=== PATIENT | female | born 1960 | race African-American/Black ===

== ENCOUNTER → 2016-10-07 | Outpatient (CLI) | payer OTHER ==
[~2016-10-07] MED LIST: ADVI200C5 PO; B-COCAP9 PO; B-COTAB30 PO; CYCL1TAB29 PO; FERR1TAB58 PO; HYDR2.5O TOPICAL; IBUP800T23 PO; MULTTAB67 PO; SLOW50TA PO; VENTAER INH; VITA10003 PO
[2016-10-07 09:12] LABS: AUTOMATED NEUTROPHIL # 6.1 TH/MM3 (1.8-7.7); BASOPHIL % 0.4 % (0.0-2.0); EOSINOPHIL # 0.1 TH/MM3 (0-0.4); EOSINOPHIL % 1.5 % (0.0-4.0); HEMATOCRIT 36.5 % (35.0-46.0); HEMO FLAGS DIFF FINAL; LYMPH % 27.4 % (9.0-44.0); LYMPHOCYTE # 2.6 TH/MM3 (1.0-4.8); MEAN CELL VOLUME 90.8 FL (80.0-100.0); MEAN CORPUSCULAR HEMOGLOBIN 30.5 PG (27.0-34.0); MEAN CORPUSCULAR HGB CONC 33.6 % (32.0-36.0); MONO % 7.2 % (0.0-8.0); NEUT % 63.5 % (16.0-70.0); PLATELET COUNT 274 TH/MM3 (150-450); RED BLOOD COUNT 4.02 MIL/MM3 (4.00-5.30); RED CELL DISTRIBUTION WIDTH 13.5 % (11.6-17.2); WHITE BLOOD COUNT 9.5 TH/MM3 (4.0-11.0)
[2016-10-07 10:16] LABS: ALKALINE PHOSPHATASE 105 U/L (45-117); ALT (GPT) 20 U/L (10-53); ANION GAP 8 MEQ/L (5-15); AST (GOT) 14 U/L (15-37); BICARBONATE 27.4 MEQ/L (21.0-32.0); BLOOD UREA NITROGEN 10 MG/DL (7-18); CHLORIDE 103 MEQ/L (98-107); GLOMERULAR FILTRATION RATE 58 ML/MIN (>89); GLUCOSE,FASTING 98 MG/DL (74-99); HDL CHOLESTEROL 39.1 MG/DL (40.0-60.0); LDL CHOLESTEROL 130 MG/DL (0-99); POTASSIUM 3.9 MEQ/L (3.5-5.1); SODIUM (NA) 138 MEQ/L (136-145); TOTAL BILIRUBIN ADULT 0.6 MG/DL (0.2-1.0)
== END ==
LOC: CLAB 08:39
PROVIDERS: ATTEND Family Medicine
DX: R76.8 Other specified abnormal immunological findings in serum (principal); M79.641 Pain in right hand; E78.5 Hyperlipidemia, unspecified
CPT/HCPCS: 36415; 80053; 80061; 84443; 85025

== ENCOUNTER 2017-05-17 16:47 | Emergency (ER) | payer SELFPAY ==
[~2017-05-17] VITALS: Ht 157.5 cm; Wt 50.0 kg
[~2017-05-17 16:47] MED LIST changes: -B-COCAP9 PO; +CYCL10TA PO; -CYCL1TAB29 PO; -FERR1TAB58 PO; +IBUP1TAB7 PO; -IBUP800T23 PO
[2017-05-17 16:49] VITALS: BP 137/74; PULSE 66; RESP 16; TEMP 98.2; O2SAT 99
--- NOTE | 2017-05-17 17:02 | PD ---
HPI Chief Complaint: Eye Problems/Injury Time Seen by Provider: 17:02 Travel History International Travel<30 days: No Contact w/Intl Traveler<30days: No Traveled to known affect area: No History of Present Illness HPI 57-year-old female came to the emergency room with history of bilateral eye irritation that has been going on for past 3 weeks. And says that she was diagnosed with conjunctivitis not in this emergency room and was given eyedrops. Patient says that the redness and the mattering became better after that but the irritation persists. She does not have a primary care physician and usually comes to the emergency room for her ailments. Vital signs are stable. There is no problem with her vision. No eye injury. Patient does not wear contact lenses. She just uses reading glasses. PFSH Past Medical History Narrative Medical List of her past medical, surgical, social and family history is reviewed from the nursing note. Social History Alcohol Use: No Tobacco Use: No Substance Use: No Allergies-Medications (Allergen,Severity, Reaction): Coded Allergies: No Known Allergies (Verified Adverse Reaction, Unknown, 05/17/17) Comments No known drug allergies. Reported Meds & Prescriptions Reported Meds & Active Scripts Active Flexeril (Cyclobenzaprine HCl) 10 Mg Tab 10 Mg PO HS Ibuprofen 800 Mg Tab 800 Mg PO Q8H PRN Hydrocortisone Topical 2.5% Oint 1 Applic TOPICAL BID Reported Super B-Complex/Vitamin C (B-Complex W/ C & Folic Acid) 1 Tab 1 Tab PO DAILY Slow Release Iron ER (Ferrous Sulfate) 50 Mg Tab 50 Mg PO DAILY Vitamin D-3 (Cholecalciferol) 1,000 Unit Tab 400 Units PO DAILY Multiple Vitamin 1 Tab 1 Tab PO DAILY Advil (Ibuprofen) 200 Mg Cap 400 Mg PO BID Ventolin Hfa 18 GM Inh (Albuterol Sulfate) 90 Mcg/Act Aer 2 Puff INH Q6H PRN Narrative Medication List of her home medications reviewed from the nursing note. Review of Systems Except as stated in HPI: all other systems reviewed are Neg Eyes: Positive: Pain Physical Exam Narrative GENERAL: Awake, alert, anxious SKIN: Focused skin assessment warm/dry. HEAD: Atraumatic. Normocephalic. EYES: Pupils equal and round. No scleral icterus. No injection or drainage. Right eyelid was everted and the palpebral conjunctiva was inspected. No out of the ordinary findings. No temporal tenderness. ENT: No nasal bleeding or discharge. Mucous membranes pink and moist. NECK: Trachea midline. No JVD. CARDIOVASCULAR: Regular rate and rhythm. No murmur appreciated. RESPIRATORY: No accessory muscle use. Clear to auscultation. Breath sounds equal bilaterally. GASTROINTESTINAL: Abdomen soft, non-tender, nondistended. Hepatic and splenic margins not palpable. MUSCULOSKELETAL: No obvious deformities. No clubbing. No cyanosis. No edema. NEUROLOGICAL: Awake and alert. No obvious cranial nerve deficits. Motor grossly within normal limits. Normal speech. PSYCHIATRIC: Appropriate mood and affect; insight and judgment normal. Data Data Last Documented VS Vital Signs Date Time Temp Pulse Resp B/P (MAP) Pulse Ox O2 Delivery O2 Flow Rate FiO2 05/17/17 17:54 05/17/17 16:49 98.2 66 16 99 Orders Orders Ed Discharge Order (05/17/17 17:50) MDM Medical Decision Making Medical Screen Exam Complete: Yes Emergency Medical Condition: Yes Medical Record Reviewed: Yes Differential Diagnosis Chronic eye irritation Narrative Course 5:50 PM visual acuity was 20/40 both eyes. I do not see any emergency currently. I've asked her to follow up with licensed nuclear operator who is on-call for us. This has been mentioned on the discharge instructions as well. Procedures EKG Prior to Arrival: No Diagnosis Primary Impression: Irritation of eye Referrals: Lexie Zhou MD 1 day Additional Instructions: Please follow-up with the field support specialist was name and number been provided to you when this discharge instruction. Call the office in the morning to to get an appointment as soon as possible. Return to the ER if the condition worsens or any other new symptoms. Med/Other Pt SpecificInfo: No Change to Meds Disposition: 01 DISCHARGE HOME Condition: Stable Marcelle Dawson MD May 17, 2017 17:02
== END 2017-05-17 18:13 | disposition home or self-care (01) ==
LOC: NEPD 16:47
DX: H57.13 Ocular pain, bilateral (principal); Z79.899 Other long term (current) drug therapy
CPT/HCPCS: 99281